=== PATIENT | female | born 1965 | race Caucasian/White ===

== ENCOUNTER → 2017-12-20 | Outpatient (CLI) | payer OTHER ==
[~2017-12-20] MED LIST: EFFEXOR PO; NONE PER PT; OMNIPAQUE 350 MG/ML, 100ML BOTTLE ONE; VENL37.52 PO
== END | disposition home or self-care (01) ==
LOC: CFH 12:03
PROVIDERS: ATTEND Specialist
DX: K80.20 Calculus of gallbladder without cholecystitis without obstruction (principal); N28.1 Cyst of kidney, acquired; C53.0 Malignant neoplasm of endocervix; Z88.0 Allergy status to penicillin; Z87.891 Personal history of nicotine dependence
CPT/HCPCS: 74177; Q9967

== ENCOUNTER 2019-07-25 10:58 | Day surgery (SDC) | payer OTHER ==
[~2019-07-25] VITALS: Ht 167.6 cm; Wt 95.0 kg
[~2019-07-25 10:58] MED LIST changes: -OMNIPAQUE 350 MG/ML, 100ML BOTTLE ONE
[2019-07-25] MEDS ORDERED: LACTATED RINGERS 1,000 ML IV SCH (11:09)
[2019-07-25 11:12] VITALS: BP 120/79
[2019-07-25] MEDS ORDERED: SCOPOLAMINE 1MG PATCH TD SCH (11:30)
[2019-07-25] MEDS ORDERED: CHLORHEXIDINE 15 ML UDC MM ONE (11:30)
[2019-07-25] MEDS ORDERED: SCOPOLAMINE 1MG PATCH TD ONE (11:35)
[2019-07-25] MEDS ORDERED: CHLORHEXIDINE 15 ML UDC ONE (11:35)
[2019-07-25 12:03] LABS: HCG UR SG 1.022 (1.003-1.030)
[2019-07-25] MEDS ORDERED: MIDAZOLAM 1 MG/ML, 2ML ONE (12:11)
[2019-07-25] MEDS ORDERED: FENTANYL PF 250 MCG/5ML ONE (12:11)
[2019-07-25] MEDS ORDERED: CEFAZOLIN 1,000 MG ONE ×3 (12:14→13:54)
[2019-07-25] MEDS ORDERED: DEXAMETHASONE 4 MG/ML, 1ML ONE (12:14)
[2019-07-25] MEDS ORDERED: GLYCOPYRROLATE 0.2MG/1ML, 5ML ONE (12:14)
[2019-07-25] MEDS ORDERED: NEOSTIGMINE 1 MG/ML, 10ML ONE (12:14)
[2019-07-25] MEDS ORDERED: ROCURONIUM 10MG/ML,5ML ONE (12:14)
[2019-07-25] MEDS ORDERED: ONDANSETRON 2MG/ML, 2ML ONE (12:14)
[2019-07-25] MEDS ORDERED: SUCCINYLCHOLINE 20 MG/ML, 10ML ONE (12:14)
[2019-07-25] MEDS ORDERED: PROPOFOL 10 MG/ML, 20ML ONE (12:14)
[2019-07-25] MEDS ORDERED: ACETAMINOPHEN 325 MG TABLET PO PRN (13:30)
[2019-07-25] MEDS ORDERED: FENTANYL PF 100 MCG/2ML IV PRN (13:30)
[2019-07-25] MEDS ORDERED: OXYcodone 5 MG/5 ML ORAL.SOL UDC PO PRN (13:30)
[2019-07-25] MEDS ORDERED: hydrALAzine 20 MG/ML, 1ML IV PRN (13:30)
[2019-07-25] MEDS ORDERED: HYDROmorphone 2 MG/ML, 1ML IVPush PRN (13:30)
[2019-07-25] MEDS ORDERED: MEPERIDINE/PF 25MG/ML,1ML IVPush PRN (13:30)
[2019-07-25] MEDS ORDERED: HALOPERIDOL 5 MG/ML IV PRN (13:30)
[2019-07-25] MEDS ORDERED: MORPHINE SULFATE 4 MG/ML, 1ML IVPush PRN (13:30)
[2019-07-25] MEDS ORDERED: PROMETHAZINE 25 MG/ML, 1ML IV PRN (13:30)
[2019-07-25] MEDS ORDERED: LABETALOL 5MG/ML, 20ML IV PRN (13:30)
[2019-07-25] MEDS ORDERED: KETOROLAC 30 MG/1 ML ONE (13:41)
== END 2019-07-25 17:10 | disposition home or self-care (01) ==
LOC: OR 10:58
PROVIDERS: ATTEND Specialist
DX: C53.0 Malignant neoplasm of endocervix (principal); N71.1 Chronic inflammatory disease of uterus; F41.9 Anxiety disorder, unspecified; J45.909 Unspecified asthma, uncomplicated; Z87.891 Personal history of nicotine dependence; Z88.0 Allergy status to penicillin; Z90.722 Acquired absence of ovaries, bilateral; Z90.79 Acquired absence of other genital organ(s); Z98.890 Other specified postprocedural states
CPT/HCPCS: 57522; 81025; 88305; 88307; J0330; J0690; J1100; J1885; J2250; J2405; J2704; J2710; J3010; J7120